=== PATIENT | female | born 1990 | race Two or more races ===

== ENCOUNTER 2016-08-18 20:37 | Emergency (ER) | payer OTHER ==
[~2016-08-18] VITALS: Ht 162.6 cm; Wt 86.2 kg
[2016-08-18] MEDS ORDERED: IBUPROFEN 600 MG TABLET PO ONE ×2 (21:00→21:13)
[2016-08-18 22:04] VITALS: BP 148/93
== END 2016-08-18 22:03 | disposition home or self-care (01) ==
LOC: ER 20:37
DX: R07.89 Other chest pain (principal)
CPT/HCPCS: 71020; 99284; A4606; Z7610